=== PATIENT | female | born 2000 | race Two or more races ===

== ENCOUNTER 2021-05-11 10:08 | Emergency (ER) | payer OTHER ==
[~2021-05-11] VITALS: Ht 149.9 cm; Wt 61.1 kg
--- NOTE | 2021-05-11 10:15 | NUR ---
Pt noted ambulating from triage with steady gait to room with no discernable SOB or discomfort.
--- NOTE | 2021-05-11 10:19 | NUR ---
PA at bedside for exam.
--- NOTE | 2021-05-11 10:27 | NUR ---
Pt to restroom for UA sample.
[2021-05-11] MEDS ORDERED: ONDANSETRON ODT 4 MG PO ONE (10:30)
[2021-05-11] MEDS ORDERED: ONDANSETRON ODT 4 MG ONE (10:32)
--- NOTE | 2021-05-11 10:34 | NUR ---
Pt medicated for nausea as ordered. Awaiting lab draw.
--- NOTE | 2021-05-11 10:40 | NUR ---
Lab at bedside for draw.
[2021-05-11 10:45] LABS: MICROSCOPIC INDICATED
[2021-05-11 11:21] LABS: BASOPHILS % (AUTO) 0 % (0-1); EOSINOPHILS % (AUTO) 0 % (1-7); LYMPHOCYTES % (AUTO) 9 % (22-44); MEAN CORPUSCULAR HEMOGLOBIN 29.4 pg (27.0-34.8); MEAN PLATELET VOLUME 8.5 fL (7.4-10.4); MONOCYTES % (AUTO) 4 % (2-9); NEUTROPHILS % (AUTO) 87 % (42-75); PLATELET COUNT 280 x10^3/uL (130-400); RED BLOOD COUNT 4.45 x10^6/uL (3.82-5.3); RED CELL DISTRIBUTION WIDTH 13.6 % (9.6-15.2)
[2021-05-11 11:32] LABS: ALBUMIN 3.9 g/dL (3.4-5.0); ANION GAP 6 mmol/L (5-15); CALCIUM 9.2 mg/dL (8.5-10.1); CHLORIDE 105 mmol/L (98-107); CREATININE 0.52 mg/dL (0.55-1.02)
--- NOTE | 2021-05-11 11:40 | NUR ---
Straight cath UA sample obtained with sterile technique and walked to lab now.
[2021-05-11 12:05] LABS: MICROSCOPIC NOT IND
[2021-05-11 12:33] VITALS: BP 101/61
--- NOTE | 2021-05-11 12:33 | NUR ---
Repeat UA results reviewed and chart marked for recheck by Pt aware.
== END 2021-05-11 12:54 | disposition home or self-care (01) ==
LOC: ED 12:45
DX: O21.0 Mild hyperemesis gravidarum (principal); Z3A.01 Less than 8 weeks gestation of pregnancy
CPT/HCPCS: 36415; 76801; 80048; 81001; 81003; 82040; 84702; 85025; 87077; 87086; 99284; Q0162